=== PATIENT | male | born 1955 | race Caucasian/White ===

== ENCOUNTER → 2018-03-12 09:42 | Outpatient (CLI) | payer OTHER, SELFPAY ==
[2018-03-12 12:03] LABS: Absolute Lymphocyte Count 1.72 X10^3/ul (0.83-4.51); Absolute Neutrophil Count 4.3 X10^3/uL (2.0-7.7); Basophil# 0.02 X10^3/uL; Basophil% 0.3 % (0-1); Eosinophil# 0.22 X10^3/uL; Eosinophils% 3.3 % (0-5); Hematocrit 46.8 % (40-54); Hemoglobin 15.2 g/dl (13.0-16.5); Lymphocyte # 1.72 X10^3/ul (4.0); Lymphocyte % 25.7 % (19-41); Mean Corp Hgb Conc 32.5 g/gl (32-36); Mean Corpuscular Hgb 27.7 pg (27.0-32.0); Mean Corpuscular Volume 85.4 fL (80-94); Monocyte# 0.47 X10^3/uL; Neutrophil # 4.26 X10^3/uL (2.7-7.7); Neutrophil % 63.6 % (47-70); Platelet Count 177 K/mm3 (150-450); RBC Distribution Width CV 13.9 % (11.6-14.6); Red Blood Count 5.48 M/mm3 (4.6-6.2); White Blood Count 6.7 K/mm3 (4.4-11.0)
[2018-03-12 12:18] LABS: POSITIVE COUNT NO; POSITIVE DIFFERENTIAL NO; POSITIVE MORPHOLOGY NO
[2018-03-12 12:25] LABS: Hemoglobin A1c 6.3 % (4.2-6.3)
[2018-03-12 12:38] LABS: AST(SGOT) 20 U/L (15-37); Alanine Aminotransfer ALT/SGPT 30 U/L (16-61); Albumin, Serum 3.7 g/dL (3.2-5.0); Alkaline Phosphatase 79 U/L (45-117); Anion Gap 8 (5-15); BUN 17 mg/dL (7-18); BUN/Creat Ratio 15.3 RATIO (10-20); Chloride 105 mmol/L (98-107); Cholesterol 163 mg/dL (200); Creatinine, Serum 1.11 mg/dL (0.70-1.30); EST Glomerular Filtration Rate 71 mL/min (>60); Est Glom Filt Rate - Afr Amer 86 mL/min (>60); Globulin 3.6 g/dL (2.2-4.2); Glucose 112 mg/dL (74-106); High Density Lipoprotein 50 mg/dL; PSA,Total - Annual Screen 2.02 ng/mL (0.00-4.00); Potassium 4.6 mmol/L (3.5-5.1); Protein, Total 7.3 g/dL (6.4-8.2); Sodium Level 143 mmol/L (136-145); Thyroid Stim Hormone (TSH) 3.08 uIU/mL (0.358-3.74); Triglycerides 100 mg/dL; Uric Acid 6.7 mg/dL (3.5-7.2); Very Low Density Lipoprotein 20 mg/dL (5-40)
[2018-03-12 12:48] LABS: Microalbumin,Random Urine < 5.0 mg/L (NO RANGE EST.)
== END ==
LOC: LAB.FUTURE 02-11 09:05 → BFHLAB 03-11 14:29
PROVIDERS: Family Provider Family Medicine; PCP Family Medicine; Visit Provider Family Medicine
DX: E11.9 Type 2 diabetes mellitus without complications (principal); I10 Essential (primary) hypertension; M10.9 Gout, unspecified; Z12.5 Encounter for screening for malignant neoplasm of prostate
CPT/HCPCS: 36415; 80053; 80061; 82043; 82570; 83036; 84153; 84443; 84550; 85025; G0103

== ENCOUNTER → 2019-03-11 10:40 | Outpatient (CLI) | payer MEDICARE, SELFPAY ==
[2014-05-22 12:07] VITALS: BMI 27.1
[2019-03-11 13:04] LABS: Absolute Lymphocyte Count 2.28 X10^3/uL (0.83-4.51); Absolute Neutrophil Count 4.5 X10^3/uL (2.0-7.7); Basophil# 0.03 X10^3/uL; Basophil% 0.4 % (0-1); Eosinophil# 0.23 X10^3/uL; Hematocrit 45.6 % (40-54); Hemoglobin 15.1 g/dL (13.0-16.5); Lymphocyte # 2.28 X10^3/ul (4.0); Mean Corp Hgb Conc 33.1 g/dL (32-36); Mean Corpuscular Hgb 28.2 pg (27.0-32.0); Mean Corpuscular Volume 85.1 fL (80-94); Mean Platelet Vol. 11.1 fl (6.2-12.0); Monocyte# 0.54 X10^3/uL; Monocyte% 7.1 % (0-10); NRBC Flagged by Analyzer 0 % (0-5); Neutrophil % 59.2 % (47-70); Platelet Count 191 K/mm3 (150-450); RBC Distribution Width CV 13.4 % (11.6-14.6); RBC Distribution Width SD 41.5 fl (35.1-43.9); Red Blood Count 5.36 M/mm3 (4.6-6.2); White Blood Count 7.6 K/mm3 (4.4-11.0)
[2019-03-11 13:59] LABS: ALB/GLOB Ratio 1.1 RATIO (0.9-2.4); AST(SGOT) 19 U/L (15-37); Alanine Aminotransfer ALT/SGPT 31 U/L (16-61); Albumin, Serum 3.9 g/dL (3.2-5.0); Alkaline Phosphatase 75 U/L (45-117); Anion Gap 3 (5-15); BUN 13 mg/dL (7-18); BUN/Creat Ratio 11.6 RATIO (10-20); Calcium,Total 8.8 mg/dL (8.5-10.1); Chloride 102 mmol/L (98-107); Cholesterol 180 mg/dL (200); Creatinine, Serum 1.12 mg/dL (0.70-1.30); EST Glomerular Filtration Rate 70 mL/min (>60); Est Glom Filt Rate - Afr Amer 85 mL/min (>60); Globulin 3.4 g/dL (2.2-4.2); Glucose 100 mg/dL (74-106); High Density Lipoprotein 49 mg/dL; Protein, Total 7.3 g/dL (6.4-8.2); Sodium Level 139 mmol/L (136-145); Thyroid Stim Hormone (TSH) 3.31 uIU/mL (0.358-3.74); Triglycerides 86 mg/dL; Uric Acid 6.3 mg/dL (3.5-7.2); Very Low Density Lipoprotein 17 mg/dL (5-40)
[2019-03-11 14:29] LABS: Hemoglobin A1c 5.9 % (4.2-6.3)
[2019-03-11 14:41] LABS: Microalbumin,Random Urine 9.7 mg/L (NO RANGE EST.); Microalbumin:Creatinine Ratio 11.6 mg/g CRE (<30 mg/g CRE)
== END ==
PROVIDERS: Family Provider Family Medicine; PCP Family Medicine; Visit Provider Family Medicine
DX: E11.9 Type 2 diabetes mellitus without complications (principal); I10 Essential (primary) hypertension; M10.9 Gout, unspecified; Z12.5 Encounter for screening for malignant neoplasm of prostate
CPT/HCPCS: 36415; 80053; 80061; 82043; 82570; 83036; 84443; 84550; 85025

== ENCOUNTER → 2019-03-18 11:19 | Outpatient (CLI) | payer MEDICARE, SELFPAY ==
[2014-05-22 12:07] VITALS: BMI 27.1
[2019-03-18 16:00] LABS: PSA,Total - Annual Screen 2.53 ng/mL (0.00-4.00)
== END ==
LOC: LAB.FUTURE 11:19 → BFHLAB 09-17 08:53
PROVIDERS: Family Provider Family Medicine; PCP Family Medicine; Visit Provider Family Medicine
DX: Z12.5 Encounter for screening for malignant neoplasm of prostate (principal)
CPT/HCPCS: 36415; 84153; G0103

== ENCOUNTER → 2022-04-25 | Outpatient (CLI) | payer MEDICARE, SELFPAY ==
[2022-04-25 11:57] LABS: Absolute Lymphocyte Count 3.05 X10^3/uL (0.83-4.51); Absolute Neutrophil Count 3.8 X10^3/uL (2.0-7.7); Basophil# 0.04 X10^3/uL; Basophil% 0.5 % (0-1); Eosinophil# 0.28 X10^3/uL; Eosinophils% 3.7 % (0-5); Hematocrit 42.9 % (40-54); Lymphocyte # 3.05 X10^3/ul (0.83-4.51); Lymphocyte % 40.6 % (19-41); Mean Corp Hgb Conc 32.6 g/dL (32-36); Mean Corpuscular Hgb 28.1 pg (27.0-32.0); Mean Platelet Vol. 10.7 fl (6.2-12.0); Monocyte# 0.35 X10^3/uL; Monocyte% 4.7 % (0-10); NRBC Flagged by Analyzer 0 % (0-5); Neutrophil # 3.76 X10^3/uL (2.7-7.7); Platelet Count 181 K/mm3 (150-450); RBC Distribution Width CV 13.2 % (11.6-14.6); RBC Distribution Width SD 40.8 fl (35.1-43.9); Red Blood Count 4.99 M/mm3 (4.6-6.2); White Blood Count 7.5 K/mm3 (4.4-11.0)
[2022-04-25 12:19] LABS: ALB/GLOB Ratio 1.3 RATIO (0.9-2.4); AST(SGOT) 20 U/L (15-37); Alanine Aminotransfer ALT/SGPT 24 U/L (16-61); Albumin, Serum 3.9 g/dL (3.2-5.0); Alkaline Phosphatase 67 U/L (45-117); Anion Gap 5 (5-15); BUN 13 mg/dL (7-18); Calcium,Total 9.4 mg/dL (8.5-10.1); Chloride 104 mmol/L (98-107); Cholesterol 158 mg/dL (200); Creatinine, Serum 1.18 mg/dL (0.70-1.30); EST Glomerular Filtration Rate 65 mL/min (>60); Est Glom Filt Rate - Afr Amer 79 mL/min (>60); Globulin 3.1 g/dL (2.2-4.2); Glucose 130 mg/dL (74-106); High Density Lipoprotein 47 mg/dL; Potassium 4.3 mmol/L (3.5-5.1); Sodium Level 140 mmol/L (136-145); Triglycerides 80 mg/dL; Uric Acid 7.5 mg/dL (3.5-7.2); Very Low Density Lipoprotein 16 mg/dL (5-40)
[2022-04-25 12:27] LABS: Hemoglobin A1c 5.5 % (3.8-5.6)
== END | disposition home or self-care (01) ==
LOC: BFHLAB 09:22
PROVIDERS: PCP Family Medicine; Visit Provider Family Medicine
DX: Z00.00 Encounter for general adult medical examination without abnormal findings (principal); I10 Essential (primary) hypertension; Z86.39 Personal history of other endocrine, nutritional and metabolic disease; M10.9 Gout, unspecified
CPT/HCPCS: 36415; 80053; 80061; 83036; 84550; 85025

== ENCOUNTER → 2023-05-01 | Outpatient (CLI) | payer MEDICARE, SELFPAY ==
[2023-05-01 17:30] LABS: Absolute Lymphocyte Count 4.94 X10^3/uL (0.83-4.51); Absolute Neutrophil Count 4.6 X10^3/uL (2.0-7.7); Basophil# 0.05 X10^3/uL; Basophil% 0.5 % (0-1); Eosinophil# 0.21 X10^3/uL; Eosinophils% 2.1 % (0-5); Hematocrit 40.4 % (40-54); Hemoglobin 13.1 g/dL (13.0-16.5); Lymphocyte # 4.94 X10^3/ul (0.83-4.51); Lymphocyte % 48.5 % (19-41); Mean Corp Hgb Conc 32.4 g/dL (32-36); Mean Corpuscular Hgb 27.8 pg (27.0-32.0); Mean Corpuscular Volume 85.6 fL (80-94); Monocyte% 3.9 % (0-10); NRBC Flagged by Analyzer 0 % (0-5); Neutrophil # 4.56 X10^3/uL (2.7-7.7); Neutrophil % 44.8 % (47-70); POSITIVE MORPHOLOGY YES; Platelet Count 183 K/mm3 (150-450); RBC Distribution Width CV 13.3 % (11.6-14.6); RBC Distribution Width SD 41.3 fl (35.1-43.9); Red Blood Count 4.72 M/mm3 (4.6-6.2); White Blood Count 10.2 K/mm3 (4.4-11.0)
[2023-05-01 17:40] LABS: Differential Indicated SCAN CRITERIA MET
[2023-05-01 17:49] LABS: ALB/GLOB Ratio 1.5 RATIO (0.9-2.4); AST(SGOT) 22 U/L (15-37); Alanine Aminotransfer ALT/SGPT 23 U/L (16-61); Albumin, Serum 4.1 g/dL (3.2-5.0); Alkaline Phosphatase 65 U/L (45-117); Anion Gap 5 (5-15); BUN 11 mg/dL (7-18); BUN/Creat Ratio 10.8 RATIO (10-20); Calcium,Total 9.2 mg/dL (8.5-10.1); Chloride 102 mmol/L (98-107); Cholesterol 155 mg/dL (200); Creatinine, Serum 1.02 mg/dL (0.70-1.30); EST Glomerular Filtration Rate 77 mL/min (>60); Est Glom Filt Rate - Afr Amer 93 mL/min (>60); Globulin 2.8 g/dL (2.2-4.2); Glucose 98 mg/dL (74-106); High Density Lipoprotein 50 mg/dL; PSA,Total - Annual Screen 3.73 ng/mL (0.00-4.00); Potassium 3.6 mmol/L (3.5-5.1); Protein, Total 6.9 g/dL (6.4-8.2); Sodium Level 137 mmol/L (136-145); Triglycerides 107 mg/dL; Very Low Density Lipoprotein 21 mg/dL (5-40)
[2023-05-01 17:50] LABS: Hemoglobin A1c 5.4 % (3.8-5.6)
[2023-05-01 18:07] LABS: Differential Comment SCANNED
== END | disposition home or self-care (01) ==
LOC: BFHLAB 13:58
PROVIDERS: PCP Family Medicine; Visit Provider Family Medicine
DX: I10 Essential (primary) hypertension (principal); Z86.39 Personal history of other endocrine, nutritional and metabolic disease; Z12.5 Encounter for screening for malignant neoplasm of prostate
CPT/HCPCS: 36415; 80053; 80061; 83036; 84153; 85025; G0103

== ENCOUNTER → 2024-03-19 | Outpatient (CLI) | payer MEDICARE, SELFPAY ==
[2024-03-19 15:28] LABS: Absolute Lymphocyte Count 7.11 X10^3/uL (0.83-4.51); Basophil# 0.07 X10^3/uL; Basophil% 0.5 % (0-1); Eosinophil# 0.17 X10^3/uL; Eosinophils% 1.3 % (0-5); Hematocrit 36.5 % (40-54); Hemoglobin 12.1 g/dL (13.0-16.5); Lymphocyte # 7.11 X10^3/ul (0.83-4.51); Lymphocyte % 54.9 % (19-41); Mean Corp Hgb Conc 33.2 g/dL (32-36); Mean Corpuscular Hgb 28.6 pg (27.0-32.0); Mean Corpuscular Volume 86.3 fL (80-94); Mean Platelet Vol. 9.8 fl (6.2-12.0); Monocyte# 0.58 X10^3/uL; Monocyte% 4.5 % (0-10); NRBC Flagged by Analyzer 0 % (0-5); Neutrophil # 4.98 X10^3/uL (2.7-7.7); Neutrophil % 38.5 % (47-70); POSITIVE DIFFERENTIAL YES; Platelet Count 170 K/mm3 (150-450); RBC Distribution Width CV 13.4 % (11.6-14.6); RBC Distribution Width SD 41.6 fl (35.1-43.9); Red Blood Count 4.23 M/mm3 (4.6-6.2)
[2024-03-19 15:37] LABS: Differential Indicated SCAN CRITERIA MET
[2024-03-19 15:41] LABS: ALB/GLOB Ratio 1.3 RATIO (0.9-2.4); AST(SGOT) 15 U/L (15-37); Alanine Aminotransfer ALT/SGPT 20 U/L (16-61); Albumin, Serum 3.9 g/dL (3.2-5.0); Alkaline Phosphatase 71 U/L (45-117); Anion Gap 5 (5-15); BUN 11 mg/dL (7-18); BUN/Creat Ratio 11.2 RATIO (10-20); Calcium,Total 9.2 mg/dL (8.5-10.1); Chloride 101 mmol/L (98-107); Cholesterol 144 mg/dL (200); Creatinine, Serum 0.99 mg/dL (0.70-1.30); EST Glomerular Filtration Rate 80 mL/min (>60); Est Glom Filt Rate - Afr Amer 97 mL/min (>60); Globulin 2.9 g/dL (2.2-4.2); Glucose 130 mg/dL (74-106); High Density Lipoprotein 43 mg/dL; Potassium 3.8 mmol/L (3.5-5.1); Protein, Total 6.8 g/dL (6.4-8.2); Sodium Level 136 mmol/L (136-145); Triglycerides 203 mg/dL; Very Low Density Lipoprotein 41 mg/dL (5-40)
[2024-03-19 15:42] LABS: Hemoglobin A1c 5.1 % (3.8-5.6)
[2024-03-19 16:23] LABS: Atypical Lymphocyte 1+ %; Platelet Estimate ADEQUATE (ADEQ)
[2024-03-19 16:24] LABS: Anisocytosis RARE; Red Cell Morphology NORM C+C NORMAL (NORM C&C)
== END | disposition home or self-care (01) ==
LOC: BFHLAB 13:38
PROVIDERS: PCP Family Medicine; Referring Provider Family Medicine; Visit Provider Family Medicine
DX: I10 Essential (primary) hypertension (principal); Z86.39 Personal history of other endocrine, nutritional and metabolic disease; R06.00 Dyspnea, unspecified; Z51.81 Encounter for therapeutic drug level monitoring; R97.20 Elevated prostate specific antigen [PSA]
CPT/HCPCS: 36415; 80053; 80061; 83036; 85025

== ENCOUNTER → 2024-04-08 | Outpatient (CLI) | payer MEDICARE, SELFPAY ==
--- NOTE | 2024-04-08 09:27 | STE_ITS ---
Reason For Study: ABN ECG Stress Results Protocol: Shivam Protocol Maximum Predicted HR: 150 bpm Target HR: 128 bpm % Maximum Predicted HR: 87 % DurationHeart Rate Stage (mm:ss) (bpm) BP BASELINE 51 138/70 STAGE 1 3:00 104 142/62 STAGE 2 3:00 113 144/64 STAGE 3 3:00 131 178/60 RECOVERY 81 130/70 Stress Duration: 9:00 mm:ss Maximum Stress HR: 131 bpm Baseline Echocardiogram Findings Stress Echo Wall motion Data Resting WM Intermediate WM Stress WM MMode/2D Measurements & Calculations Ao root diam: 4.6 cm ECHO/Stress Test Echo w/o Contrast Interpretation Summary Stress echocardiogram. 68-year-old man with a history of chest pain. Resting EKG demonstrates sinus bradycardia with a rate of 53 bpm resting blood pressure is 138/70 mmHg. The patient exercised according to regular Shivam protocol for a total dur ation of 9 minutes. The maximum heart rate attained was 134 bpm which was 89% of max impacted heart rate the maximum workload was 10.1 metabolic equivalents. At rest there were no ST or T wave [place] nges noted suggest ischemia at peak exercise there was less than [address] depression noted in the inferolateral leads not diagnostic of ischemia. No clinical angina was noted th e test was terminated due to target heart rate being achieved. The peak blood pressure is 178/60 mmHg which was a normal blood pressure response to exercise. Stress echocardiogram. The resting echocardiogram demonstrated preserved ejecti on fraction of 55%. With exercise there was thickening of all kendrick and reduction of left ventricul ar cavity size with peaking of ejection fraction at 70%. No wall motion abnormalities were noted. Conclusion: Exercise stress echocardiogram with no evidence of ischemia at a high workload. . Ordering Physician: Dylan Egan Referring Physician: Dylan Egan Performed By: Ryan Wilkins RCS
== END | disposition home or self-care (01) ==
PROVIDERS: PCP Family Medicine; Referring Provider Family Medicine; Visit Provider Family Medicine
DX: R06.09 Other forms of dyspnea (principal); R94.31 Abnormal electrocardiogram [ECG] [EKG]
CPT/HCPCS: 93017; 93350

== ENCOUNTER → 2024-06-24 | Outpatient (CLI) | payer MEDICARE, SELFPAY | END | disposition home or self-care (01) | LOC: BFHLAB 08:43 | PROVIDERS: PCP Family Medicine; Visit Provider Family Medicine | DX: Z12.5 Encounter for screening for malignant neoplasm of prostate (principal) | CPT/HCPCS: 36415; 84153; G0103 ==